=== PATIENT | male | born 1965 | race Caucasian/White ===

== ENCOUNTER 2023-07-13 12:19 | Day surgery (SDC) | payer OTHER ==
[~2023-07-13] VITALS: Ht 208.3 cm; Wt 178.9 kg
[2023-07-13 13:19] VITALS: BP 141/82; PULSE 67; TEMP 98.5
[2023-07-13] MEDS ORDERED: ZOFRAN ODT4 MG PO (14:43)
[2023-07-13] MEDS ORDERED: BYSTOLIC10 MG PO (14:44)
[2023-07-13] MEDS ORDERED: LASIX 20MG TABL20 MG PO (14:45)
[2023-07-13] MEDS ORDERED: ELIQUIS 5MG PO (14:45)
[2023-07-13] MEDS ORDERED: CATAPRES 0.1MG0.1 MG PO (14:47)
[2023-07-13] MEDS ORDERED: CYMBALTA 60MG60 MG (14:48)
[2023-07-13] MEDS ORDERED: PROAIR HFA0.09 MG/AC IH (14:48)
[2023-07-13] MEDS ORDERED: REQUIP 1MG T1 MG/TAB (14:49)
[2023-07-13] MEDS ORDERED: PRIL40 PO (14:49)
[2023-07-13] MEDS ORDERED: SINGULAIR 110 MG/TAB (14:50)
[2023-07-13] MEDS ORDERED: MAVIK4 MG PO (14:50)
[2023-07-13] MEDS ORDERED: TAMBOCOR 1100 MG/TAB PO (14:51)
[2023-07-13] MEDS ORDERED: NUVIGIL250 MG (14:52)
[2023-07-13] MEDS ORDERED: CAPACET 325 MG-1 CAP (14:53)
[2023-07-13] MEDS ORDERED: PRAVACHOL 40MG40 MG PO (14:54)
[2023-07-13] MEDS ORDERED: DAZIDOX20 MG PO (14:55)
[2023-07-13] MEDS ORDERED: MS CONTIN 330 MG/TAB (14:55)
[2023-07-13] MEDS ORDERED: VALIUM 10MG10 MG/TAB PO (14:55)
[2023-07-13] MEDS ORDERED: DEPO-TESTOS200 MG/M1 IM (14:56)
[2023-07-13] MEDS ORDERED: CIALIS5 MG (14:56)
[2023-07-13] MEDS ORDERED: VISTARIL 2525 MG/CAP PO (14:58)
[2023-07-13] MEDS ORDERED: OTREXUP20 MG/0.4 SQ (14:59)
[2023-07-13] MEDS ORDERED: 00186-0372-20 IH (14:59)
[2023-07-13] MEDS ORDERED: VERAPAMIL240 MG/TAB PO (15:00)
--- NOTE | 2023-07-13 15:02 | NUR ---
PATIENT AMBULATED TO BAY 7 WITH USE OF CANE. ALERT AND ORIENTED X4. PATIENT STATED UNDERSTANDING OF PROCEDURE. CONSENTS SIGNED. ASSESSMENT COMPLETED. 18G IV STARTED IN RIGHT HAND BY SAYDA ALLEN. LR INFUSING WITHOUT DIFFICULTIES. PATIENT REFUSED IV PEPCID. NO FURTHER NEEDS NOTED. RESTING IN COT. CALL LIGHT IN REACH.
--- NOTE | 2023-07-13 15:48 | NUR ---
HAND OFF REPORT GIVEN TO SAYDA ALLEN. MATT GALVIN NOTIFIED THAT PATIENT REFUSED IV PEPCID.
[2023-07-13 19:30] VITALS: BP 119/56; PULSE 72; TEMP 97.7
--- NOTE | 2023-07-13 19:31 | NUR ---
PATIENT RECEIVED TO ROOM 342 FROM PACU. PATIENT STATING HE IS READY TO GO HOME. IV IN PLACE TO R HAND. PATIENT'S FRIEND PRESENT IN ROOM TO TAKE PATIENT HOME ON DISCHARGE.
--- NOTE | 2023-07-13 19:36 | NUR ---
PATIENT WANTING TO HAVE IV TAKEN OUT "NOW" PATIENT STATING HE IS WANTING TO LEAVE NOW. PATIENT STATING "YOU CAN TAKE YOUR INSTRUCTIONS AND STICK THEM UP YOUR..." PATIENT AGGRESSIVE AND NOT COOPERATIVE WITH STAFF. PATIENT PULLED OUT IV SITE, OBSERVED PATIENT BLEEDING FROM IV SITE WHILE TRYING TO GET DRESSED, HOUSE SUPERVISER CALLED. ATTEMPTED TO CONFIRM WITH PATIENT IF HIS INTENTIONS WERE TO LEAVE AMA WITH PATIENT NO ANSWERING ANY QUESTIONS.
[2023-07-13 19:40] VITALS: BP 119/56; PULSE 73
--- NOTE | 2023-07-13 19:40 | NUR ---
PATIENT REQUESTED TO LEAVE AMA, REVIEWED WITH PATIENT POST COMPLICATIONS AND RISKS WITH PATIENT STILL SIGNING AMA PAPERS AND ESCORTED BY SECURITY OFF UNIT WITH FRIEND PRESENT TO TAKE PATIENT HOME.
== END 2023-07-13 19:40 | disposition left against medical advice (07) ==
LOC: SDCO 12:19
DX: M17.12 Unilateral primary osteoarthritis, left knee (principal); I10 Essential (primary) hypertension; K21.9 Gastro-esophageal reflux disease without esophagitis; G47.33 Obstructive sleep apnea (adult) (pediatric); Z87.891 Personal history of nicotine dependence
CPT/HCPCS: J0171; J0665; J0690; J1100; J1885; J2405; J2704; J3010; J7120